=== PATIENT | female | born 1985 | race Caucasian/White ===

== ENCOUNTER 2017-07-30 12:55 | Emergency (ER) ==
[2017-07-30 13:09] VITALS: BP 126/69; TEMP 99.6; BMI 34.8
--- NOTE | 2017-07-30 13:24 | ED.PDOC ---
General ED Provider: Dr. KAYLEIGH WADDELL Chief Complaint: Respiratory Complaint Stated Complaint: FLU LIKE SYMP Time Seen by Physician: 13:00 Mode of Arrival: Walk-In Information Source: Patient Exam Limitations: No limitations (SEE WITH ENTIRE STAFF AT ALL TIMES ) Primary Care Provider: BEE MCNEAL Nursing and Triage Documentation Reviewed and Agree: Yes Reviewed sepsis parameters & appropriate labs ordered?: Yes System Inflammatory Response Syndrome: Not Applicable Sepsis Protocol: For patient's 13 years and over: Temp is 96.8 and below OR 101 and greater Pulse >90 BPM Resp >20/minute Acutely Altered Mental Status Are patient's symptoms suggestive of a new infection, such as: -Pneumonia -Skin, Soft Tissue -Endocarditis -UTI -Bone, Joint Infection -Implantable Device -Acute Abdominal Infection -Wound Infection -Meningitis -Blood Stream Catheter Infection -Unknown System Inflammatory Response Syndrome: Not Applicable Respiratory Complaint Exam - Respiratory Complaint/Exam Onset/Duration: 2 DAYS Symptoms Are: Resolved Timing: Constant Initial Severity: Mild Current Severity: Mild Location: Throat, Chest Character: Reports: Non-productive cough Aggravating: Reports: None Associated Signs and Symptoms: Reports: URI, Nasal congestion. Denies: Rapid breathing, Dyspnea, Fever, Chills, Chest pain, Pleuritic chest pain, Wheezing, Hemoptysis, Dizziness, Calf pain, Calf swelling, Edema, Hoarseness, Sinus discomfort, Vomiting, Sore throat, Weight loss, Decreased oral intake, Increased thirst, Increased appetite, Increased urination History of Healthcare-Acquired Pneumonia: No Related Surgical History: Reports: None Pulmonary Embolism Risk Factors: None Cardiac Risk Factors: Reports: None Pseudomonas Risk Factors: Reports: None Tuberculosis Risk Factors: Reports: None Status Asthmaticus Risk Factors: Reports: None Home Oxygen Use: No Recent Stress Test: No Recent Echo/LV Function: No Current Antibiotic Use: No Current Asthma Medication Use: No Respiratory Distress: None Inadequate Respiratory Effort: No Dysphagia Present: No Stridor Present: No JVD Present: No Accessory Muscle Use: No Retractions: Not Present Diminished Breath Sounds: No Sinus Tenderness: None Grunting Respirations: No Kussmaul Respirations: No Differential Diagnoses: Influenza Review of Systems - Review Of Systems Constitutional: Reports: Malaise Eyes: Reports: No symptoms Ears, Nose, Mouth, Throat: Reports: Throat pain Respiratory: Reports: Cough Cardiac: Reports: No symptoms GI: Reports: No symptoms : Reports: No symptoms Musculoskeletal: Reports: No symptoms Skin: Reports: No symptoms Neurological: Reports: No symptoms Endocrine: Reports: No symptoms Hematologic/Lymphatic: Reports: No symptoms All Other Systems: Reviewed and Negative Past Medical History - Past Medical History Previously Healthy: Yes Endocrine: Reports: None Cardiovascular: Reports: None Respiratory: Reports: None Hematological: Reports: None Gastrointestinal: Reports: None Genitourinary: Reports: None Neuro/Psych: Reports: None Musculoskeletal: Reports: None Cancer: Reports: None Last Menstrual Period: 1 month ago - Surgical History General Surgical History: Reports: None - Family History Family History: Reports: None - Social History Smoking Status: Never smoker Hx Substance Use: No Alcohol Screening: None Physical Exam - Physical Exam Appearance: Ill-appearing Ill-appearing: Mild Pain Distress: Mild Eyes: BRYAN, EOMI, Conjunctiva clear ENT: Erythema Respiratory: Airway patent, Breath sounds clear, Breath sounds equal, Respirations nonlabored Cardiovascular: RRR, Pulses normal, No rub, No murmur GI/: Soft, Nontender, No masses, Bowel sounds normal, No Organomegaly Musculoskeletal: Normal strength, ROM intact, No edema, No calf tenderness Skin: Warm, Dry, Normal color Neurological: Sensation intact, Motor intact, Reflexes intact, Cranial nerves intact, Alert, Oriented Psychiatric: Affect appropriate, Mood appropriate Critical Care Note - Critical Care Note Total Time (mins): 0 Course - Course Orders, Labs, Meds: Orders Category Date Time Status FLU A/B MOLECULAR Stat LAB 07/30/17 13:20 Ordered MOLECULAR GROUP A STREP Stat LAB 07/30/17 13:20 Ordered CHEST, 2 VIEWS PA & LAT Stat RADS 07/30/17 13:19 Stop Req Vital Signs: Temp Pulse Resp BP Pulse Ox 07/30/17 12:56 99.6 F 108 H 20 126/69 98 Departure - Departure Time of Disposition: 14:09 Disposition: HOME SELF-CARE Discharge Problem: Acute viral syndrome Instructions: Viral Syndrome (ED) Condition: Good Pt referred to PMD for follow-up: Yes IPMP verified?: Yes Additional Instructions: Please call your Family Physician as soon as possible to schedule a follow-up appointment. Allergies/Adverse Reactions: Allergies No Known Allergies Allergy (Unverified 07/30/17 13:01) Home Medications: Ambulatory Orders Norgestimate-Ethinyl Estradiol [Trinessa Lo Tablet] 1 each PO DAILY 07/30/17
== END 2017-07-30 14:02 | disposition home or self-care (01) ==
LOC: ED 12:55
DX: B34.9 Viral infection, unspecified (principal)
CPT/HCPCS: 87502; 87651; 99282

== ENCOUNTER 2018-09-07 08:42 | Emergency (ER) ==
[2018-09-07 08:49] VITALS: BP 138/97; TEMP 98; BMI 45.0
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
== END 2018-09-07 11:05 | disposition home or self-care (01) ==
LOC: ED 08:42
DX: S60.211A Contusion of right wrist, initial encounter (principal); V89.2XXA Person injured in unspecified motor-vehicle accident, traffic, initial encounter
CPT/HCPCS: 99282